=== PATIENT | male | born 1990 | race Caucasian/White ===

== ENCOUNTER 2023-06-23 23:34 | Emergency (ER) | payer OTHER ==
[2023-06-24 00:42] VITALS: RESP 18
--- NOTE | 2023-06-24 01:13 | ED ---
General Adult HPI - General Chief complaint: Skin/Abscess/Foreign Body Stated complaint: possible body lice Time Seen by Provider: 06/24/23 01:00 Source: patient Mode of arrival: ambulatory Limitations: no limitations - History of Present Illness Initial comments: 52-year-old male presenting to the ED with chief complaint of skin problem. Patient states that this is ongoing for a while now. Patient reports recent treatment for scabies however no resolution with this. Patient states that he has body lice and would like treatment of this. No fever or chills. No other complaints at this time. - Related Data Home Medications Medication Instructions Recorded Confirmed Acetaminophen Tab [Tylenol Tab] 650 mg PO Q4H PRN 12/24/15 12/24/15 Previous Rx's Medication Instructions Recorded Acetaminophen-Codeine 300-30mg 1 tab PO Q4H PRN #20 tablet 12/24/15 [Tylenol w/codeine #3] Penicillin V Potassium [Pen Vee K] 500 mg PO TID #40 tab 12/24/15 Permethrin 5% Cream [Elimite] 1 applic TOPICAL ONCE #60 gram 06/24/23 Allergies Allergy/AdvReac Type Severity Reaction Status Date / Time No Known Allergies Allergy Verified 06/24/23 00:27 Review of Systems ROS Statement: Those systems with pertinent positive or pertinent negative responses have been documented in the HPI. ROS Other: All systems not noted in ROS Statement are negative. Past Medical History Past Medical History: No Reported History History of Any Multi-Drug Resistant Organisms: None Reported Past Surgical History: No Surgical Hx Reported Past Psychological History: No Psychological Hx Reported Past Alcohol Use History: Occasional Past Drug Use History: None Reported General Exam Limitations: no limitations General appearance: alert, in no apparent distress Eye exam: Present: normal appearance Neck exam: Present: normal inspection Respiratory exam: Present: normal lung sounds bilaterally Cardiovascular Exam: Present: regular rate, normal rhythm GI/Abdominal exam: Present: soft Skin exam: Present: other (Patient has round lesions scattered all over his body. Examination unable to see any lice.) Course Vital Signs 06/24/23 06/24/23 00:25 01:13 Temperature 98 F 98.5 F Pulse Rate 119 H 100 Respiratory 18 18 Rate Blood Pressure 140/92 136/77 O2 Sat by Pulse 98 99 Oximetry Medical Decision Making - Medical Decision Making Was pt. sent in by a medical professional or institution (MARY Arguelles, [employer] DOWEL MACHINE OPERATOR, urgent care, hospital, or halfway...) When possible be specific @ -No Did you speak to anyone other than the patient for history (EMS, parent, family, police, friend...)? What history was obtained from this source @ -No Did you review nursing and triage notes (agree or disagree)? Why? @ -I reviewed and agree with nursing and triage notes Were old charts reviewed (outside hosp., previous admission, EMS record, old EKG, old radiological studies, urgent care reports/EKG's, halfway records)? Report findings @ -No old charts were reviewed Differential Diagnosis (chest pain, altered mental status, abdominal pain women, abdominal pain men, vaginal bleeding, weakness, fever, dyspnea, syncope, headache, dizziness, GI bleed, back pain, seizure, CVA, palpatations, mental health, musculoskeletal)? @ -Differential Musculoskeletal Muscular strain, contusion, ligament sprain, fracture, arthritis, septic arthritis, bursitis, cellulitis, muscle spasm, nerve compression, DVT, arterial occlusion, herpes zoster, electrolyte abnormality, tumor.... This is not meant to be in all inclusive list EKG interpreted by me (3pts min.). @ -None X-rays interpreted by me (1pt min.). @ -None done CT interpreted by me (1pt min.). @ -None done U/S interpreted by me (1pt. min.). @ -None done What testing was considered but not performed or refused? (CT, X-rays, U/S, labs)? Why? @ -None What meds were considered but not given or refused? Why? @ -None Did you discuss the management of the patient with other professionals (professionals i.e. MARY Arguelles, [employer] D[employer] MACHINE OPERATOR, lab, RT, psych nurse, clinical social worker, arts manager, teacher, airplane first officer, block and case maker)? Give summary @ -No Was smoking cessation discussed for >3mins.? @ -No Was critical care preformed (if so, how long)? @ -No Were there social determinants of health that impacted care today? How? (Homelessness, low income, unemployed, alcoholism, drug addiction, transportation, low edu. Level, literacy, decrease access to med. care, [facility], rehab)? @ -No Was there de-escalation of care discussed even if they declined (Discuss DNR or withdrawal of care, Hospice)? DNR status @ -No What co-morbidities impacted this encounter? (DM, HTN, Smoking, COPD, CAD, Cancer, CVA, ARF, Chemo, Hep., AIDS, mental health diagnosis, sleep apnea, morbid obesity)? @ -None Was patient admitted / discharged? Hospital course, mention meds given and route, prescriptions, significant lab abnormalities, going to OR and other pertinent info. @ -Discharge 32-year-old male presenting to the ED with chief complaint of skin problem ongoing "for a while". Rash does appear fungal in nature on examination however patient would not like any antifungal treatment. Request treatment for lice. Discharged home with prescription for permethrin. Advised follow-up with PCP and/or dermatology. Undiagnosed new problem with uncertain prognosis? @ -No Drug Therapy requiring intensive monitoring for toxicity (Heparin, Nitro, Insulin, Cardizem)? @ -No Were any procedures done? @ -No Diagnosis/symptom? @ -Rash, concern for lice Acute, or Chronic, or Acute on Chronic? @ -Acute Uncomplicated (without systemic symptoms) or Complicated (systemic symptoms)? @ -Uncomplicated Side effects of treatment? @ -No Exacerbation, Progression, or Severe Exacerbation? @ -No Poses a threat to life or bodily function? How? (Chest pain, [place], [place], pneumonia, PE, COPD, DKA, ARF, appy, cholecystitis, CVA, Diverticulitis, Homicidal, Suicidal, threat to staff... and all critical care pts) @ -No Disposition Clinical Impression: Rash Disposition: HOME SELF-CARE Condition: Good Additional Instructions: Please return to the Emergency Department if symptoms worsen or any other concerns. Please follow-up with your PCP and or dermatology. Prescriptions: Permethrin 5% Cream [Elimite] 1 applic TOPICAL ONCE #60 gram Is patient prescribed a controlled substance at d/c from ED?: No Referrals: Margarito Turner MD [Primary Care Provider] - 1-2 days Time of Disposition: 01:15
[2023-06-24 01:20] VITALS: BP 136/77; PULSE 100; TEMP 98.5
== END 2023-06-24 01:14 | disposition home or self-care (01) ==
LOC: EC 23:34
DX: R21 Rash and other nonspecific skin eruption (principal)
CPT/HCPCS: 99282